=== PATIENT | male | born 1955 | race African-American/Black ===

== ENCOUNTER 2022-08-22 15:44 | Emergency (ER) | payer MEDICARE, MEDICAID ==
[~2022-08-22] VITALS: Ht 190.5 cm; Wt 85.0 kg
[2022-08-22 16:00] VITALS: BP 162/87
[2022-08-22] MEDS ORDERED: HYDROcodone-ACET 5/325MG TAB PO ONE ×2 (17:15→18:30)
[2022-08-22] MEDS ORDERED: INDO50SU RE ×3 (18:21→18:27)
[2022-08-22] MEDS ORDERED: BACL10TA PO (18:39)
== END 2022-08-22 18:35 | disposition home or self-care (01) ==
LOC: ER 15:44
DX: M79.672 Pain in left foot (principal); F17.210 Nicotine dependence, cigarettes, uncomplicated; Z79.899 Other long term (current) drug therapy
CPT/HCPCS: 73630

== ENCOUNTER 2022-08-29 07:37 | Emergency (ER) | payer MEDICARE, MEDICAID ==
[~2022-08-29] VITALS: Ht 190.5 cm; Wt 85.0 kg
[~2022-08-29 07:37] MED LIST: BACL10TA PO; INDO50SU RE
[2022-08-29 07:47] VITALS: BP 143/74
[2022-08-29] MEDS ORDERED: HYDROcodone-ACET 10/325MG TAB PO ONE (08:30)
[2022-08-29] MEDS ORDERED: PROM1SOL4 PO (08:43)
== END 2022-08-29 08:48 | disposition home or self-care (01) ==
LOC: ER 07:37
DX: M54.42 Lumbago with sciatica, left side (principal); R05.9 Cough, unspecified; F17.210 Nicotine dependence, cigarettes, uncomplicated; Z79.899 Other long term (current) drug therapy
CPT/HCPCS: 73502

== ENCOUNTER 2022-09-03 03:03 | Emergency (ER) | payer MEDICARE, MEDICAID ==
[~2022-09-03] VITALS: Ht 190.5 cm; Wt 91.0 kg
[~2022-09-03 03:03] MED LIST changes: +PROM1SOL4 PO
[2022-09-03 03:53] LABS: Basophils # (auto) 0 10 ^3/uL (0-0.2); Basophils % (auto) 1.3 % (0.0-2.0); Eosinophils # (auto) 0.1 10 ^3/uL (0-0.8); Eosinophils % (auto) 2.4 % (0.0-7.0); Hematocrit 38.8 % (41.0-53.0); Hemoglobin 13.2 g/dL (13.5-17.5); Lymphocytes # (auto) 1.4 10 ^3/uL (0.4-5.4); Lymphocytes % (auto) 47.1 % (10.0-50.0); Mean Corpuscular Hgb Conc. 33.9 g/dL (32.0-36.0); Mean Corpuscular Volume 88.5 fL (80.0-100.0); Monocytes # (auto) 0.3 10 ^3/uL (0-1.3); Monocytes % (auto) 10.8 % (0.0-12.0); Neutrophils # (auto) 1.1 10 ^3/uL (1.6-8.6); Neutrophils % (auto) 38.4 % (37.0-80.0); Nucleated Red Blood Cells % 0.2 %; Red Blood Cells 4.39 10^6/uL (4.5-5.90); Red Cell Distribution Width 13.7 % (11.8-14.3); White Blood Cell 2.9 10^3/uL (4.4-10.8)
[2022-09-03 04:09] LABS: Albumin 3.7 g/dL (3.4-5.0); Calcium 8.6 mg/dL (8.5-10.1)
[2022-09-03 04:11] LABS: BUN/Creatinine Ratio 24.7; Bilirubin, Total 0.2 mg/dL (0.2-1.0); Total Protein 7.8 g/dL (6.4-8.2)
[2022-09-03] MEDS ORDERED: AZITHROMYCIN 250 MG TAB PO ONE (08:15)
[2022-09-03] MEDS ORDERED: AZIT250T9 PO (08:15)
[2022-09-03 09:15] VITALS: BP 144/81
== END 2022-09-03 09:18 | disposition home or self-care (01) ==
LOC: ER 03:03
DX: R05.9 Cough, unspecified (principal); J20.9 Acute bronchitis, unspecified; R07.89 Other chest pain; J45.909 Unspecified asthma, uncomplicated; F17.210 Nicotine dependence, cigarettes, uncomplicated; Z79.899 Other long term (current) drug therapy
CPT/HCPCS: 36415; 71045; 80053; 84484; 85025; 93005